=== PATIENT | female | born 1965 | race Caucasian/White ===

== ENCOUNTER 2018-04-22 08:29 | Inpatient (IN) | payer MEDICARE ==
[~2018-04-22] VITALS: Ht 162.6 cm; Wt 69.4 kg
[2018-04-22] MEDS ORDERED: ONDANSETRON HCL 4 MG/2 ML VIAL IVP ONE (09:30)
[2018-04-22] MEDS ORDERED: SODIUM CHLORIDE 0.9% 1,000 ML IV ONE (09:30)
[2018-04-22 09:47] LABS: BASOPHILS % (AUTO) 1.2 % (0.0-2.0); EOSINOPHILS % (AUTO) 0.5 % (1.0-6.0); HEMATOCRIT 40.9 % (36-46); HEMOGLOBIN 14.1 g/dL (12.0-16.0); LYMPHOCYTES # (AUTO) 1.3 K/uL (1.0-4.8); LYMPHOCYTES % (AUTO) 20.4 % (22.0-44.0); MEAN CORPUSCULAR HEMOGLOBIN 36.2 pg (26.0-34.0); MEAN CORPUSCULAR HGB CONC 34.6 G/dL (31.0-37.0); MEAN CORPUSCULAR VOLUME 105 fL (80-100); MONOCYTES # (AUTO) 0.5 K/uL (0.1-1.0); MONOCYTES % (AUTO) 8.5 % (2.0-9.0); NEUTROPHILS # (AUTO) 4.4 K/uL (1.8-7.7); NEUTROPHILS % (AUTO) 69.4 % (40.0-70.0); PLATELET COUNT (AUTO) 316 K/uL (150-450); RED BLOOD CELL COUNT(AUTO) 3.91 MIL/uL (4.00-5.20); RED CELL DISTRIBUTION WIDTH 13.2 % (11.5-14.5)
[2018-04-22 09:56] LABS: ANION GAP 19 mmol/L (8-16); CALCIUM, TOTAL 9.1 mg/dL (8.8-10.5); CARBON DIOXIDE 19 mmol/L (22-29); CHLORIDE 98 mmol/L (98-107); CREATININE 1.17 mg/dL (0.60-1.30); GLOMERULAR FILTR. RATE CALC 49 mL/min (>60); GLUCOSE,RANDOM 115 mg/dL (70-110); POTASSIUM 3.9 mmol/L (3.5-5.1); SODIUM SERUM 136 mmol/L (136-145); UREA NITROGEN, BLOOD 18 mg/dL (7-18)
[2018-04-22 10:05] LABS: B-TYPE NATRIURETIC PEPTIDE < 5 pg/mL (0-100)
[2018-04-22] MEDS ORDERED: LORazepam 2 MG/ML VIAL IVP ONE (10:15)
[2018-04-22 10:26] LABS: ALANINE AMINOTRANSFERASE 39 U/L (12-78); ALBUMIN 4.2 g/dL (3.4-5.0); ALKALINE PHOSPHATASE 87 U/L (46-116); ASPARTATE AMINOTRANSFERASE 53 U/L (15-37); LIPASE 108 U/L (73-393); TOTAL PROTEIN, SERUM 7.8 g/dL (6.4-8.2)
[2018-04-22 12:57] LABS: AMPHET/METH SCREEN,URINE NEGATIVE (NEGATIVE); BARBITURATE SCREEN, URINE NEGATIVE (NEGATIVE); BENZODIAZEPINES SCREEN,URINE NEGATIVE (NEGATIVE); COCAINE SCREEN,URINE NEGATIVE (NEGATIVE); METHADONE SCREEN, URINE NEGATIVE (NEGATIVE); OPIATE SCREEN,URINE POSITIVE (NEGATIVE)
[2018-04-22 13:05] LABS: CANNABINOID SCREEN,URINE NEGATIVE (NEGATIVE); PHENCYCLIDINE SCREEN,URINE NEGATIVE (NEGATIVE)
[2018-04-22 13:30] VITALS: BP 118/67
[2018-04-22] MEDS: LORazepam 2 MG TABLET PO PRN ×2 (13:48→17:50)
[2018-04-22 15:26] LABS: APPEARANCE,URINE CLEAR (CLEAR); BILIRUBIN,URINE NEGATIVE (NEGATIVE); GLUCOSE, URINE (UA) NEGATIVE (NEGATIVE); KETONES,URINE NEGATIVE (NEGATIVE); LEUKOCYTE ESTERASE ,URINE NEGATIVE (NEGATIVE); NITRATE,URINE NEGATIVE (NEGATIVE); OCCULT BLOOD,URINE NEGATIVE (NEGATIVE); PH,URINE 6.5 (5.0-8.0); PROTEIN,URINE NEGATIVE (NEGATIVE); UROBILINOGEN,URINE 0.2 mg/dL (<=1.0)
[2018-04-22] MEDS ORDERED: PNEUMOCOCCAL VACCINE POLYVALENT 0.5 ML VIAL [PPSV23] IM ONE (15:45)
[2018-04-22 19:48] VITALS: BP 108/58
[2018-04-22] MEDS: ZOLPIDEM TARTRATE 10 MG TABLET PO PRN (20:41)
[2018-04-23 04:46] VITALS: BP 126/104
[2018-04-23] MEDS: HALOPERIDOL 5 MG TABLET PO PRN (04:49)
[2018-04-23] MEDS: LORazepam 2 MG TABLET PO PRN (07:45)
[2018-04-23 08:00] VITALS: BP 149/90
[2018-04-23] MEDS: SERTRALINE HCL 50 MG TABLET PO SCH (12:07)
[2018-04-23] MEDS: ONDANSETRON HCL 4 MG TABLET PO PRN (16:16)
[2018-04-23 16:17] VITALS: BP 153/101
[2018-04-23] MEDS: ACETAMINOPHEN 325 MG TABLET PO PRN ×2 (16:17→22:46)
[2018-04-23 16:49] VITALS: BP 153/101
[2018-04-23] MEDS: PRAZOSIN HCL 1 MG CAPSULE PO SCH (20:29)
[2018-04-23] MEDS: ZOLPIDEM TARTRATE 10 MG TABLET PO PRN (22:46)
[2018-04-23 22:48] VITALS: BP 126/90
[2018-04-24] MEDS: LORazepam 2 MG TABLET PO PRN ×2 (03:53→10:35)
[2018-04-24 04:36] VITALS: BP 134/100
[2018-04-24] MEDS: ACETAMINOPHEN 325 MG TABLET PO PRN (04:38)
[2018-04-24] MEDS: SERTRALINE HCL 50 MG TABLET PO SCH (08:05)
[2018-04-24] MEDS: ONDANSETRON HCL 4 MG TABLET PO PRN (08:13)
[2018-04-24 08:51] VITALS: BP 138/68
[2018-04-24] MEDS: IBUPROFEN 600 MG TABLET PO PRN ×2 (10:36→20:55)
[2018-04-24 10:37] VITALS: BP 141/95
[2018-04-24 16:42] VITALS: BP 133/99
[2018-04-24] MEDS: PRAZOSIN HCL 1 MG CAPSULE PO SCH (20:51)
[2018-04-24 20:55] VITALS: BP 131/100
[2018-04-24 21:55] VITALS: BP 145/76
[2018-04-24] MEDS: ZOLPIDEM TARTRATE 10 MG TABLET PO PRN (22:48)
[2018-04-25 05:36] VITALS: BP 153/91
[2018-04-25] MEDS: LORazepam 2 MG TABLET PO PRN ×3 (05:36→23:48)
[2018-04-25] MEDS: IBUPROFEN 600 MG TABLET PO PRN ×2 (05:36→20:25)
[2018-04-25 08:05] VITALS: BP 120/77
[2018-04-25] MEDS: SERTRALINE HCL 50 MG TABLET PO SCH (08:22)
[2018-04-25 16:54] VITALS: BP 133/88
[2018-04-25] MEDS: PRAZOSIN HCL 1 MG CAPSULE PO SCH (20:21)
[2018-04-25 20:26] VITALS: BP 131/91
[2018-04-25 23:45] VITALS: BP 138/91
[2018-04-25] MEDS: HALOPERIDOL 5 MG TABLET PO PRN (23:47)
[2018-04-26] MEDS: SERTRALINE HCL 50 MG TABLET PO SCH (09:09)
[2018-04-26] MEDS ORDERED: SERT50TA12 PO (10:09)
[2018-04-26] MEDS ORDERED: PRAZ1 PO (10:09)
[2018-04-26 10:13] VITALS: BP 114/73
[2018-04-26] MEDS: LORazepam 2 MG TABLET PO PRN (12:31)
[2018-04-26 12:32] VITALS: BP 137/96
[2018-04-26] MEDS: IBUPROFEN 600 MG TABLET PO PRN (12:32)
== END 2018-04-26 16:30 | disposition home or self-care (01) | DRG 885 ==
LOC: EMS 08:31 → 3EX 11:50
DX: F33.3 Major depressive disorder, recurrent, severe with psychotic symptoms (principal); R45.851 Suicidal ideations; F10.10 Alcohol abuse, uncomplicated; I10 Essential (primary) hypertension; F11.10 Opioid abuse, uncomplicated; E78.00 Pure hypercholesterolemia, unspecified; E86.0 Dehydration; R12 Heartburn; F43.12 Post-traumatic stress disorder, chronic; J45.909 Unspecified asthma, uncomplicated; Z59.0 Homelessness; Z79.899 Other long term (current) drug therapy; Z87.891 Personal history of nicotine dependence; Z91.5 Personal history of self-harm
CPT/HCPCS: 96361; 96374; 96375; G0378; G0480; J2060; J2405; J7030; Q0162

== ENCOUNTER 2018-06-18 07:18 | Inpatient (IN) | payer MEDICARE, MEDICAID ==
[~2018-06-18] VITALS: Ht 160 cm; Wt 70.3 kg
[~2018-06-18 07:18] MED LIST: PRAZ1 PO; SERT50TA12 PO
[2018-06-18 08:35] LABS: BASOPHILS % (AUTO) 0.5 % (0.0-2.0); EOSINOPHILS % (AUTO) 1.1 % (1.0-6.0); HEMATOCRIT 34.5 % (36-46); HEMOGLOBIN 12.3 g/dL (12.0-16.0); LYMPHOCYTES # (AUTO) 0.6 K/uL (1.0-4.8); LYMPHOCYTES % (AUTO) 11.4 % (22.0-44.0); MEAN CORPUSCULAR HEMOGLOBIN 35.1 pg (26.0-34.0); MEAN CORPUSCULAR HGB CONC 35.8 G/dL (31.0-37.0); MEAN CORPUSCULAR VOLUME 98 fL (80-100); MONOCYTES # (AUTO) 0.5 K/uL (0.1-1.0); MONOCYTES % (AUTO) 8.5 % (2.0-9.0); NEUTROPHILS # (AUTO) 4.4 K/uL (1.8-7.7); NEUTROPHILS % (AUTO) 78.5 % (40.0-70.0); PLATELET COUNT (AUTO) 228 K/uL (150-450); RED BLOOD CELL COUNT(AUTO) 3.51 MIL/uL (4.00-5.20); RED CELL DISTRIBUTION WIDTH 13.9 % (11.5-14.5)
[2018-06-18 08:53] LABS: ALANINE AMINOTRANSFERASE 29 U/L (12-78); ALBUMIN 3.2 g/dL (3.4-5.0); ALKALINE PHOSPHATASE 79 U/L (46-116); ANION GAP 14 mmol/L (8-16); ASPARTATE AMINOTRANSFERASE 37 U/L (15-37); CALCIUM, TOTAL 8.6 mg/dL (8.8-10.5); CARBON DIOXIDE 23 mmol/L (22-29); CHLORIDE 96 mmol/L (98-107); CREATININE 0.67 mg/dL (0.60-1.30); GLOMERULAR FILTR. RATE CALC > 60 mL/min (>60); GLUCOSE,RANDOM 107 mg/dL (70-110); SODIUM SERUM 133 mmol/L (136-145); TOTAL PROTEIN, SERUM 5.9 g/dL (6.4-8.2); UREA NITROGEN, BLOOD 17 mg/dL (7-18)
[2018-06-18] MEDS ORDERED: ZOLPIDEM TARTRATE 10 MG TABLET PO PRN (09:45)
[2018-06-18] MEDS ORDERED: ACETAMINOPHEN 500 MG TABLET PO ONE (10:00)
[2018-06-18] MEDS ORDERED: MAG HYDROX/AL HYDROX/SIMETH ES 30 ML SUSPENSION UDCUP PO ONE (10:00)
[2018-06-18] MEDS ORDERED: POTASSIUM CHLORIDE 10% 40 MEQ/30 ML LIQUID UDCUP PO ONE (10:00)
[2018-06-18] MEDS ORDERED: MAG HYDROX/AL HYDROX/SIMETH ES 30 ML SUSPENSION UDCUP PO PRN (13:30)
[2018-06-18] MEDS ORDERED: NICOTINE 14 MG/24 HOUR PATCH TD PRN (13:30)
[2018-06-18] MEDS ORDERED: DOCUSATE SODIUM 100 MG CAPSULE PO PRN (13:30)
[2018-06-18] MEDS ORDERED: MAGNESIUM HYDROXIDE SUSPENSION 30 ML UDCUP PO PRN (13:30)
[2018-06-18] MEDS ORDERED: ALBUTEROL SULFATE HFA 90 MCG/PUFF 8 GM INHALER IH PRN (13:30)
[2018-06-18] MEDS ORDERED: PETROLATUM,WHITE 71 GM JELLY TP PRN (13:30)
[2018-06-18] MEDS ORDERED: CloNIDine HCL 0.1 MG TABLET PO PRN (13:30)
[2018-06-18] MEDS ORDERED: GuaiFENesin/D-METHORPHAN [SUGAR-FREE] 200-20MG/10 ML SYRUP UDCUP PO PRN (13:30)
[2018-06-18 13:47] VITALS: BP 156/97
[2018-06-18] MEDS: ONDANSETRON HCL 4 MG TABLET PO PRN (13:47)
[2018-06-18] MEDS: LORazepam 2 MG TABLET PO PRN ×2 (14:01→20:02)
[2018-06-18] MEDS ORDERED: PNEUMOCOCCAL VACCINE POLYVALENT 0.5 ML VIAL [PPSV23] IM ONE (14:30)
[2018-06-18] MEDS: LOPERAMIDE HCL 2 MG CAPSULE PO PRN (16:09)
[2018-06-18 18:55] VITALS: BP 152/87
[2018-06-18] MEDS: PRAZOSIN HCL 1 MG CAPSULE PO SCH (19:59)
[2018-06-18] MEDS: HALOPERIDOL 5 MG TABLET PO PRN (20:02)
[2018-06-18] MEDS ORDERED: SERTRALINE HCL 100 MG TABLET PO SCH (21:00)
[2018-06-19 06:17] LABS: BASOPHILS % (AUTO) 0.6 % (0.0-2.0); EOSINOPHILS % (AUTO) 6.8 % (1.0-6.0); HEMATOCRIT 32.9 % (36-46); HEMOGLOBIN 11.6 g/dL (12.0-16.0); LYMPHOCYTES % (AUTO) 14.5 % (22.0-44.0); MEAN CORPUSCULAR HEMOGLOBIN 35.4 pg (26.0-34.0); MEAN CORPUSCULAR HGB CONC 35.4 G/dL (31.0-37.0); MEAN CORPUSCULAR VOLUME 100 fL (80-100); MONOCYTES # (AUTO) 0.5 K/uL (0.1-1.0); NEUTROPHILS % (AUTO) 71.1 % (40.0-70.0); PLATELET COUNT (AUTO) 183 K/uL (150-450); RED BLOOD CELL COUNT(AUTO) 3.29 MIL/uL (4.00-5.20); RED CELL DISTRIBUTION WIDTH 14.3 % (11.5-14.5)
[2018-06-19 07:00] LABS: ALBUMIN 3.3 g/dL (3.4-5.0); BILIRUBIN,TOTAL 1.9 mg/dL (0.1-1.0); CALCIUM, TOTAL 8.7 mg/dL (8.8-10.5); CHOL/HDL RATIO 2.6 (3.9-5.7); CREATININE 1.04 mg/dL (0.60-1.30); FREE T4 (FREE THYROXINE) 0.62 ng/dL (0.76-1.46); THYROID STIMULATING HORMONE 2.89 uIU/mL (0.36-3.74); TOTAL PROTEIN, SERUM 5.9 g/dL (6.4-8.2)
[2018-06-19 07:04] LABS: POTASSIUM 2.8 mmol/L (3.5-5.1)
[2018-06-19 07:07] LABS: HEMOGLOBIN A1C 5.5 % (4.5-6.2)
[2018-06-19 07:10] VITALS: BP 149/86
[2018-06-19] MEDS ORDERED: POTASSIUM CHLORIDE 20 MEQ ER TABLET PO ONE (07:15)
[2018-06-19] MEDS: LORazepam 2 MG TABLET PO PRN ×2 (08:05→16:45)
[2018-06-19] MEDS: ARIPiprazole 5 MG TABLET PO SCH (08:05)
[2018-06-19] MEDS: NICOTINE 7 MG/24 HOUR PATCH TD PRN (08:06)
[2018-06-19] MEDS: LOPERAMIDE HCL 2 MG CAPSULE PO PRN (08:06)
[2018-06-19] MEDS: ONDANSETRON HCL 4 MG TABLET PO PRN (08:06)
[2018-06-19] MEDS: SERTRALINE HCL 100 MG TABLET PO SCH (08:37)
[2018-06-19] MEDS ORDERED: SERTRALINE HCL 100 MG TABLET PO SCH (09:00)
[2018-06-19 11:08] VITALS: BP 159/93
[2018-06-19] MEDS: LACTOBACILLUS ACIDOPHILUS/BULGARICUS GRANULES PACKET PO SCH (16:46)
[2018-06-19 16:47] VITALS: BP 157/94
[2018-06-19] MEDS: PRAZOSIN HCL 1 MG CAPSULE PO SCH (20:35)
[2018-06-19 20:36] VITALS: BP 140/90
[2018-06-19 21:35] VITALS: BP 132/88
[2018-06-19] MEDS: ACETAMINOPHEN 325 MG TABLET PO PRN (21:39)
[2018-06-20] MEDS: LORazepam 2 MG TABLET PO PRN ×4 (01:24→22:47)
[2018-06-20 01:40] VITALS: BP 150/90
[2018-06-20 08:06] VITALS: BP 126/75
[2018-06-20] MEDS: LACTOBACILLUS ACIDOPHILUS/BULGARICUS GRANULES PACKET PO SCH ×3 (08:17→16:11)
[2018-06-20] MEDS: ARIPiprazole 5 MG TABLET PO SCH (08:17)
[2018-06-20] MEDS: THIAMINE HCL 100 MG TABLET PO SCH (08:18)
[2018-06-20] MEDS: FOLIC ACID 1 MG TABLET PO SCH (08:18)
[2018-06-20] MEDS: SERTRALINE HCL 100 MG TABLET PO SCH (08:18)
[2018-06-20] MEDS: HALOPERIDOL 5 MG TABLET PO PRN (16:08)
[2018-06-20 16:14] VITALS: BP 142/97
[2018-06-20] MEDS: PRAZOSIN HCL 1 MG CAPSULE PO SCH (21:44)
[2018-06-21 08:05] VITALS: BP 122/86
[2018-06-21] MEDS: THIAMINE HCL 100 MG TABLET PO SCH (08:26)
[2018-06-21] MEDS: FOLIC ACID 1 MG TABLET PO SCH (08:26)
[2018-06-21] MEDS: LACTOBACILLUS ACIDOPHILUS/BULGARICUS GRANULES PACKET PO SCH ×3 (08:26→17:13)
[2018-06-21] MEDS: SERTRALINE HCL 100 MG TABLET PO SCH (08:27)
[2018-06-21] MEDS: LORazepam 2 MG TABLET PO PRN ×2 (08:31→13:07)
[2018-06-21] MEDS: ACETAMINOPHEN 325 MG TABLET PO PRN (13:07)
[2018-06-21] MEDS: NICOTINE 7 MG/24 HOUR PATCH TD PRN (13:37)
[2018-06-21 16:00] VITALS: BP 133/73
[2018-06-21] MEDS: HALOPERIDOL 5 MG TABLET PO PRN (19:00)
[2018-06-21] MEDS: PRAZOSIN HCL 1 MG CAPSULE PO SCH (20:53)
[2018-06-21] MEDS: ARIPiprazole 5 MG TABLET PO SCH (20:53)
[2018-06-22] MEDS: LORazepam 2 MG TABLET PO PRN ×3 (01:31→16:47)
[2018-06-22 03:20] VITALS: BP 127/88
[2018-06-22] MEDS: LACTOBACILLUS ACIDOPHILUS/BULGARICUS GRANULES PACKET PO SCH ×3 (08:39→16:21)
[2018-06-22] MEDS: SERTRALINE HCL 100 MG TABLET PO SCH (08:39)
[2018-06-22] MEDS: FOLIC ACID 1 MG TABLET PO SCH (08:39)
[2018-06-22] MEDS: THIAMINE HCL 100 MG TABLET PO SCH (08:40)
[2018-06-22 10:27] VITALS: BP 108/86
[2018-06-22] MEDS: ACETAMINOPHEN 325 MG TABLET PO PRN (10:27)
[2018-06-22 14:07] VITALS: BP 101/85
[2018-06-22] MEDS: NICOTINE 7 MG/24 HOUR PATCH TD PRN (14:22)
[2018-06-22 17:03] VITALS: BP 115/84
[2018-06-22] MEDS: ARIPiprazole 5 MG TABLET PO SCH (20:44)
[2018-06-22] MEDS: HALOPERIDOL 5 MG TABLET PO PRN (20:45)
[2018-06-22] MEDS: PRAZOSIN HCL 1 MG CAPSULE PO SCH (20:46)
[2018-06-23 08:10] VITALS: BP 125/87
[2018-06-23] MEDS: THIAMINE HCL 100 MG TABLET PO SCH (08:13)
[2018-06-23] MEDS: HALOPERIDOL 5 MG TABLET PO PRN ×2 (08:13→20:32)
[2018-06-23] MEDS: IBUPROFEN 400 MG TABLET PO PRN (08:13)
[2018-06-23] MEDS: LORazepam 2 MG TABLET PO PRN ×3 (08:13→20:32)
[2018-06-23] MEDS: FOLIC ACID 1 MG TABLET PO SCH (08:13)
[2018-06-23] MEDS: SERTRALINE HCL 100 MG TABLET PO SCH (08:14)
[2018-06-23] MEDS: LACTOBACILLUS ACIDOPHILUS/BULGARICUS GRANULES PACKET PO SCH ×3 (08:16→16:15)
[2018-06-23] MEDS: ACETAMINOPHEN 325 MG TABLET PO PRN (13:57)
[2018-06-23] MEDS: FERROUS SULFATE 325 MG EC TABLET PO SCH (16:15)
[2018-06-23 16:51] VITALS: BP 127/80
[2018-06-23] MEDS: ARIPiprazole 5 MG TABLET PO SCH (20:00)
[2018-06-23] MEDS: PRAZOSIN HCL 1 MG CAPSULE PO SCH (20:01)
[2018-06-24] MEDS: FERROUS SULFATE 325 MG EC TABLET PO SCH ×3 (06:59→16:23)
[2018-06-24] MEDS: LACTOBACILLUS ACIDOPHILUS/BULGARICUS GRANULES PACKET PO SCH ×3 (08:21→16:23)
[2018-06-24 08:23] VITALS: BP 133/84
[2018-06-24] MEDS: THIAMINE HCL 100 MG TABLET PO SCH (08:23)
[2018-06-24] MEDS: FOLIC ACID 1 MG TABLET PO SCH (08:23)
[2018-06-24] MEDS: IBUPROFEN 400 MG TABLET PO PRN ×2 (08:24→21:27)
[2018-06-24] MEDS: NICOTINE 7 MG/24 HOUR PATCH TD PRN (08:24)
[2018-06-24] MEDS: SERTRALINE HCL 100 MG TABLET PO SCH (08:24)
[2018-06-24] MEDS: LORazepam 2 MG TABLET PO PRN ×3 (08:25→21:27)
[2018-06-24] MEDS ORDERED: PERMETHRIN 1% 60 ML LOTION TP ONE (10:00)
[2018-06-24 10:49] VITALS: BP 133/84
[2018-06-24] MEDS: HALOPERIDOL 5 MG TABLET PO PRN ×2 (11:46→16:36)
[2018-06-24 16:32] VITALS: BP 128/94
[2018-06-24] MEDS: PRAZOSIN HCL 1 MG CAPSULE PO SCH (20:28)
[2018-06-24] MEDS: ARIPiprazole 5 MG TABLET PO SCH (20:29)
[2018-06-24 21:28] VITALS: BP 131/87
[2018-06-25] MEDS: FERROUS SULFATE 325 MG EC TABLET PO SCH ×3 (06:53→16:46)
[2018-06-25 08:09] VITALS: BP 118/75
[2018-06-25] MEDS: THIAMINE HCL 100 MG TABLET PO SCH (08:09)
[2018-06-25] MEDS: HALOPERIDOL 5 MG TABLET PO PRN ×2 (08:09→12:34)
[2018-06-25] MEDS: NICOTINE 7 MG/24 HOUR PATCH TD PRN (08:09)
[2018-06-25] MEDS: LACTOBACILLUS ACIDOPHILUS/BULGARICUS GRANULES PACKET PO SCH ×3 (08:09→16:46)
[2018-06-25] MEDS: IBUPROFEN 400 MG TABLET PO PRN ×2 (08:09→19:52)
[2018-06-25] MEDS: SERTRALINE HCL 100 MG TABLET PO SCH (08:09)
[2018-06-25] MEDS: LORazepam 2 MG TABLET PO PRN ×3 (08:09→19:52)
[2018-06-25] MEDS: FOLIC ACID 1 MG TABLET PO SCH (08:09)
[2018-06-25 19:29] VITALS: BP 126/73
[2018-06-25 19:52] VITALS: BP 130/85
[2018-06-25] MEDS: PRAZOSIN HCL 1 MG CAPSULE PO SCH (20:28)
[2018-06-25] MEDS: ARIPiprazole 5 MG TABLET PO SCH (20:28)
[2018-06-26] MEDS: FERROUS SULFATE 325 MG EC TABLET PO SCH ×3 (07:14→18:27)
[2018-06-26 08:00] VITALS: BP 109/75
[2018-06-26] MEDS: LACTOBACILLUS ACIDOPHILUS/BULGARICUS GRANULES PACKET PO SCH ×3 (08:14→15:59)
[2018-06-26] MEDS: THIAMINE HCL 100 MG TABLET PO SCH (08:15)
[2018-06-26] MEDS: SERTRALINE HCL 100 MG TABLET PO SCH (08:15)
[2018-06-26] MEDS: FOLIC ACID 1 MG TABLET PO SCH (08:15)
[2018-06-26] MEDS: NICOTINE 7 MG/24 HOUR PATCH TD PRN (08:16)
[2018-06-26] MEDS: HALOPERIDOL 5 MG TABLET PO PRN ×2 (08:22→20:40)
[2018-06-26] MEDS: LORazepam 2 MG TABLET PO PRN ×2 (08:22→16:42)
[2018-06-26 11:15] VITALS: BP 111/87
[2018-06-26] MEDS: IBUPROFEN 400 MG TABLET PO PRN (11:24)
[2018-06-26 17:06] VITALS: BP 122/78
[2018-06-26] MEDS: ARIPiprazole 5 MG TABLET PO SCH (20:38)
[2018-06-26] MEDS: PRAZOSIN HCL 1 MG CAPSULE PO SCH (20:38)
[2018-06-27] VITALS: BP 113/74
[2018-06-27] MEDS: IBUPROFEN 400 MG TABLET PO PRN (00:02)
[2018-06-27] MEDS: LORazepam 2 MG TABLET PO PRN ×2 (06:52→13:27)
[2018-06-27] MEDS: HALOPERIDOL 5 MG TABLET PO PRN (06:52)
[2018-06-27] MEDS: FERROUS SULFATE 325 MG EC TABLET PO SCH ×2 (07:09→12:30)
[2018-06-27] MEDS: SERTRALINE HCL 100 MG TABLET PO SCH (08:44)
[2018-06-27] MEDS: FOLIC ACID 1 MG TABLET PO SCH (08:45)
[2018-06-27] MEDS: THIAMINE HCL 100 MG TABLET PO SCH (08:45)
[2018-06-27] MEDS: LACTOBACILLUS ACIDOPHILUS/BULGARICUS GRANULES PACKET PO SCH ×2 (08:45→12:31)
[2018-06-27 09:00] VITALS: BP 117/74
[2018-06-27] MEDS ORDERED: ARIP5TAB8 PO (12:20)
[2018-06-27] MEDS ORDERED: PRAZ1 PO (12:20)
[2018-06-27] MEDS ORDERED: SERT100T12 PO (12:22)
[2018-06-27] MEDS ORDERED: FERR-89 PO (12:25)
[2018-06-27] MEDS ORDERED: THIA100T67 PO (12:26)
[2018-06-27] MEDS ORDERED: ACID1GRA PO (12:26)
[2018-06-27] MEDS ORDERED: FOLI1 PO (12:26)
== END 2018-06-27 14:15 | disposition home or self-care (01) | DRG 885 ==
LOC: EMS 07:19 → 3EX 11:23
PROVIDERS: ADMIT Psychiatry & Neurology Psychiatry; ATTEND Psychiatry & Neurology Psychiatry
DX: F33.3 Major depressive disorder, recurrent, severe with psychotic symptoms (principal); R45.851 Suicidal ideations; E87.1 Hypo-osmolality and hyponatremia; I10 Essential (primary) hypertension; F43.12 Post-traumatic stress disorder, chronic; J45.909 Unspecified asthma, uncomplicated; K29.20 Alcoholic gastritis without bleeding; K70.30 Alcoholic cirrhosis of liver without ascites; F17.200 Nicotine dependence, unspecified, uncomplicated; Z71.6 Tobacco abuse counseling; E78.5 Hyperlipidemia, unspecified; E78.00 Pure hypercholesterolemia, unspecified; D64.9 Anemia, unspecified; B85.0 Pediculosis due to Pediculus humanus capitis; E87.6 Hypokalemia; F10.129 Alcohol abuse with intoxication, unspecified; Z59.0 Homelessness; Z79.899 Other long term (current) drug therapy; Z91.19 Patient's noncompliance with other medical treatment and regimen; Z91.5 Personal history of self-harm
CPT/HCPCS: 83036; 84132; 84439; 84443; G0378; G0480; Q0162